=== PATIENT | female | born 1960 | race Caucasian/White ===

== ENCOUNTER 2019-04-02 15:10 | Observation (INO) | payer SELFPAY ==
[~2019-04-02 15:10] MED LIST: GLYCOPYRROLATE 1 MG/5 ML VIAL ONE; KETOROLAC TROMETHAMINE 60 MG/2 ML SDV ONE; LIDOCAINE 2% INJ-PF (20 MG/ML) 2 ML AMPUL ONE; NEOSTIGMINE METHYLSULFATE 10 MG/10 ML VIAL ONE; ONDANSETRON HCL INJ/PF 4 MG/2 ML SDV ONE; ROCURONIUM BROMIDE INJ 50 MG/5 ML VIAL IV ONE; SUCCINYLCHOLINE CHLORIDE INJ 200 MG/10 ML VIAL ONE
--- NOTE | 2019-04-02 15:46 | ER Document Report ---
ED Medical Screen (RME) - General Chief Complaint: Abdominal Pain Stated Complaint: RIGHT SIDE ABDOMINAL PAIN Time Seen by Provider: 04/02/19 15:43 Primary Care Provider: ROSANA FREEMAN MD [Primary Care Provider] - Follow up as needed Notes: 58-year-old female presented to ED for complaint of right-sided abdominal pain. Patient states pain started this morning. She states she she is having nausea but no vomiting or diarrhea. She denies any fevers. Patient states she still has her appendix and the pain is very tender at McBurney's point. She also has some right pelvic tenderness. Will do blood and urine to start with and have her examined while laying down. I have greeted and performed a rapid initial assessment of this patient. A comprehensive ED assessment and evaluation of the patient, analysis of test results and completion of medical decision making process will be conducted by an additional ED providers. Physical Exam - Vital signs Vitals: Temp Pulse Resp BP Pulse Ox 97.6 F 80 20 159/86 H 98 04/02/19 15:27 04/02/19 15:27 04/02/19 15:27 04/02/19 15:27 04/02/19 15:27 Course - Vital Signs Vital signs: Temp Pulse Resp BP Pulse Ox 97.6 F 80 20 159/86 H 98 04/02/19 15:27 04/02/19 15:27 04/02/19 15:27 04/02/19 15:27 04/02/19 15:27 Doctor's Discharge - Discharge Referrals: ROSANA FREEMAN MD [Primary Care Provider] - Follow up as needed
[2019-04-02] MEDS ORDERED: OXYCODONE-ACETAMINOPHEN 5-325 MG TABLET PO ONE (15:48)
[2019-04-02] MEDS ORDERED: ONDANSETRON 4 MG TAB.RAPDIS PO ONE (15:48)
[2019-04-02 17:25] LABS: APPEARANCE,URINE SLIGHTLY-CLOUDY; BILIRUBIN,URINE NEGATIVE (NEGATIVE); COLOR,URINE YELLOW; GLUCOSE, URINE NEGATIVE (NEGATIVE); KETONES,URINE NEGATIVE (NEGATIVE); PROTEIN,URINE NEGATIVE (NEGATIVE); URINE SPECIFIC GRAVITY 1.019; UROBILINOGEN,URINE NEGATIVE mg/dL (<2.0)
[2019-04-02 17:35] LABS: ALBUMIN 4.7 g/dL (3.5-5.0); ALKALINE PHOSPHATASE 75 U/L (38-126); ANION GAP 12 (5-19); ASPARTATE AMINO TRANSFERASE 23 U/L (14-36); BILIRUBIN,DIRECT 0.1 mg/dL (0.0-0.4); BILIRUBIN,TOTAL 0.8 mg/dL (0.2-1.3); BLOOD UREA NITROGEN 10 mg/dL (7-20); CALCIUM 9.9 mg/dL (8.4-10.2); CARBON DIOXIDE 26 mmol/L (22-30); CHLORIDE 100 mmol/L (98-107); GLUCOSE 111 mg/dL (75-110); POTASSIUM 4.6 mmol/L (3.6-5.0); TOTAL PROTEIN 7.7 g/dL (6.3-8.2)
[2019-04-02 17:40] LABS: HEMATOCRIT 45.7 % (36.0-47.0); HEMOGLOBIN 15.5 g/dL (12.0-15.5); MEAN CORPUSCULAR HEMOGLOBIN 31.8 pg (27.0-33.4); MEAN CORPUSCULAR VOLUME 94 fl (80-97); PLATELET COUNT 219 10^3/uL (150-450); RED BLOOD COUNT 4.88 10^6/uL (3.72-5.28); RED CELL DISTRIBUTION WIDTH 12.5 % (11.5-14.0); WHITE BLOOD COUNT 17.7 10^3/uL (4.0-10.5)
--- NOTE | 2019-04-02 18:43 | RADIOLOGY REPORT (SQ) ---
EXAM DESCRIPTION: CT ABD/PELVIS WITH IV ONLY COMPLETED DATE/TIME: 04/02/2019 6:24 pm REASON FOR STUDY: Severe right lower quadrant abdominal pain COMPARISON: None. TECHNIQUE: CT scan of the abdomen and pelvis performed using helical scanning technique with dynamic intravenous contrast injection. No oral contrast. Images reviewed with lung, soft tissue, and bone windows. Reconstructed coronal and sagittal MPR images reviewed. Delayed images for evaluation of the urinary system also acquired. All images stored on PACS. All CT scanners at this facility use dose modulation, iterative reconstruction, and/or weight based d osing when appropriate to reduce radiation dose to as low as reasonably achievable (ALARA). [facility]: Dose Right [facility]: CareDose [facility]: Dose Right [facility]: Teradose 4D [facility]: Anergis CONTRAST TYPE AND DOSE: contrast/concentration: Isovue 350.00 mg/ml; Total Contrast Delivered: 83.0 ml; Total Saline Delivered: 69.0 ml RENAL FUNCTION: BUN 10; creatinine 0.59 RADIATION DOSE: CT Rad equipment meets quality standard of care and radiation dose reduction techniq ues were employed. CTDIvol: 7.6 - 10.4 mGy. DLP: 964 mGy-cm.. LIMITATIONS: None. FINDINGS: LOWER CHEST: No significant findings. No nodules or infiltrates. LIVER: Normal size. No masses. No dilated ducts. SPLEEN: Normal size. No focal lesions. PANCREAS: No masses. No significant calcifications. No adjacent inflammation or peripancreatic fluid collections. Pancreatic duct not dilated. GALLBLADDER: No identified stones by CT criteria. No inflammatory changes to suggest cholecystitis. ADRENAL GLANDS: No significant masses or asymmetry. RIGHT KIDNEY AND URETER: No solid masses. No significant calcifications. No hydronephrosis or hyd roureter. LEFT KIDNEY AND URETER: No solid masses. No significant calcifications. No hydronephrosis or hydr oureter. AORTA AND VESSELS: No aneurysm. No dissection. Renal arteries, SMA, celiac without stenosis. RETROPERITONEUM: No retroperitoneal adenopathy, hemorrhage or masses. BOWEL AND PERITONEAL CAVITY: No masses or inflammatory changes. No free fluid or peritoneal masses. APPENDIX: The appendix appears dilated up to 1.7 cm with mural thickening and and appendicolith. PELVIS: No mass. No free fluid. The bladder appears normal. The uterine vasculature appears promin ent, suggesting pelvic vascular congestion. ABDOMINAL WALL: No masses. No hernias. BONES: No significant or acute findings. OTHER: No other significant finding. IMPRESSION: Findings consistent with uncomplicated acute appendicitis. Chronic and incidental findi ngs as detailed above. TECHNICAL DOCUMENTATION: JOB ID: [id number] Quality ID # [id number]: Final reports with documentation of one or more dose reduction techniques (e.g., Au tomated exposure control, adjustment of the mA and/or kV according to patient size, use of iterative reconstruction technique) 2010 [employer]- All Rights Reserved Reading location - IP/workstation name: [email or web address]
[2019-04-02 19:05] LABS: ABSOLUTE LYMPHOCYTES# (MANUAL) 0.7 10^3/uL (0.5-4.7); ABSOLUTE MONOCYTES # (MANUAL) 0.7 10^3/uL (0.1-1.4); BAND NEUTROPHILS % (MANUAL) 3 % (3-5); BASOPHILS % (MANUAL) 0 % (0-2); EOSINOPHILS % (MANUAL) 0 % (0-6); LYMPHOCYTES % (MANUAL) 4 % (13-45); MONOCYTES % (MANUAL) 4 % (3-13); SEGMENTED NEUTROPHILS % (MAN) 89 % (42-78); TOTAL CELLS COUNTED 100
[2019-04-02 19:06] LABS: PLATELET COMMENT ADEQUATE
--- NOTE | 2019-04-02 19:07 | ER Document Report ---
ED General - General Chief Complaint: Abdominal Pain Stated Complaint: RIGHT SIDE ABDOMINAL PAIN Time Seen by Provider: 04/02/19 15:43 Primary Care Provider: ROSANA FREEMAN MD [EMERITUS] - Follow up as needed - HPI Patient complains to provider of: Right lower quadrant abdominal pain Onset: This morning Quality of pain: Sharp Severity: Severe Pain Level: 5 Associated symptoms: Nausea Exacerbated by: Movement Relieved by: Denies Similar symptoms previously: No Recently seen / treated by doctor: No Notes: This is a 58-year-old female presenting with abdominal pain that started this morning. Patient reports her pain as a 5 on a 1-5 scale. Patient states she is also having nausea. Initial vital signs temp is 97.6 oral, heart rate 80, respiratory rate 20, pulse ox 98% on room air, blood pressure is 159/86. - Related Data Allergies/Adverse Reactions: No Known Allergies Allergy (Verified 04/02/19 15:46) Past Medical History - Social History Smoking Status: Never Smoker Frequency of alcohol use: None Drug Abuse: None Family History: Reviewed & Not Pertinent Patient has suicidal ideation: No Patient has homicidal ideation: No - Medical History Medical History: Negative Review of Systems - Review of Systems Constitutional: No symptoms reported EENT: No symptoms reported Cardiovascular: No symptoms reported Respiratory: No symptoms reported Gastrointestinal: See HPI, Abdominal pain, Nausea Genitourinary: No symptoms reported Female Genitourinary: No symptoms reported Musculoskeletal: No symptoms reported Skin: No symptoms reported Hematologic/Lymphatic: No symptoms reported Neurological/Psychological: No symptoms reported -: Yes All other systems reviewed and negative Physical Exam - Vital signs Vitals: Temp Pulse Resp BP Pulse Ox 97.6 F 80 20 159/86 H 98 04/02/19 15:27 04/02/19 15:27 04/02/19 15:27 04/02/19 15:27 04/02/19 15:27 - Notes Notes: PHYSICAL EXAMINATION: GENERAL: Well-appearing, well-nourished and in no acute distress. HEAD: Atraumatic, normocephalic. EYES: Pupils equal round and reactive to light, extraocular movements intact, sclera anicteric, conjunctiva are normal. ENT: nares patent, oropharynx clear without exudates. Moist mucous membranes. NECK: Normal range of motion, supple without lymphadenopathy LUNGS: Breath sounds clear to auscultation bilaterally and equal. No wheezes rales or rhonchi. HEART: Regular rate and rhythm without murmurs ABDOMEN: Abdomen is nondistended, very tender to palpation in the right lower quadrant. Positive Mcrae sign. Negative Rovsing sign. No guarding. Bowel sounds are hypoactive. EXTREMITIES: Normal range of motion, no pitting or edema. No cyanosis. NEUROLOGICAL: No focal neurological deficits. Moves all extremities spontaneously and on command. PSYCH: Normal mood, normal affect. SKIN: Warm, Dry, normal turgor, no rashes or lesions noted. Course - Re-evaluation Re-evalutation: 04/02/19 19:38 Patient states that her pain and nausea are currently well controlled. Patient was informed that her evaluation is significant for acute appendicitis. Patient states that the last time she ate was yesterday. Patient was informed that this MD would consult Dr. Sheth, in-house surgical list and that the patient will require appendectomy. Patient states understanding of diagnosis and treatment plan as explained to her. Patient states she had no further questions at this time. Differential diagnosis: Acute appendicitis, diverticulitis, renal stone, pyelonephritis, colitis Assessment and plan: 58-year-old female presents with right lower quadrant pain and nausea x1 day. Patient's evaluation ED significant for leukocytosis and acute appendicitis. Plan: Case discussed with Dr. Sheth's OR nurse. Dr. Chapo leblanc is currently in the OR performing an appendectomy. He stated he would see the pt in the ED. He requested IV Zosyn be given to the pt while she is in the ED. - Vital Signs Vital signs: Temp Pulse Resp BP Pulse Ox 99.8 F 87 19 143/62 H 100 04/02/19 18:00 04/02/19 18:00 04/02/19 18:00 04/02/19 18:00 04/02/19 18:00 04/02/19 19:43 Vital signs reviewed by this MD. - Laboratory Result Diagrams: 04/02/19 16:55 04/02/19 16:55 Laboratory results interpreted by me: 04/02/19 04/02/19 04/02/19 16:55 16:55 16:55 WBC 17.7 H Seg Neuts % (Manual) 89 H Lymphocytes % (Manual) 4 L Abs Neuts (Manual) 16.3 H Glucose 111 H Urine Blood SMALL H 04/02/19 19:43 All laboratory results reviewed by this MD. - Diagnostic Test Radiology reviewed: Reports reviewed Discharge - Discharge Clinical Impression: Acute appendicitis Qualifiers: Acute appendicitis type: unspecified acute appendicitis type Qualified Code(s): K35.80 - Unspecified acute appendicitis Disposition: ADMITTED OBSERVATION Admitting Provider: Surgicalist - DR. SHETH Unit Admitted: Surgical Floor Referrals: ROSANA FREEMAN MD [EMERITUS] - Follow up as needed
[2019-04-02] MEDS ORDERED: PIPERACILLIN/TAZOBACTAM 3.375 GM VIAL IV ONE (19:20)
[2019-04-02] MEDS ORDERED: NORMAL SALINE 1000 ML 1,000 ML IV PRN (21:55)
[2019-04-02] MEDS ORDERED: BUPIVACAINE HCL 0.25 % INJ/PF (2.5 MG/1 ML) 30 ML VIAL ONE (23:00)
[2019-04-02] MEDS ORDERED: FENTANYL CITRATE INJ/PF 250 MCG/5 ML AMPULE ONE (23:07)
[2019-04-02] MEDS ORDERED: HYDROMORPHONE HCL INJ/PF 2 MG/ML AMPULE ONE (23:07)
[2019-04-02] MEDS ORDERED: MIDAZOLAM 2 MG/2 ML INJ ONE (23:07)
[2019-04-02] MEDS ORDERED: PROPOFOL INJ 200 MG/20 ML VIAL IV ONE (23:07)
--- NOTE | 2019-04-02 23:30 | PDOC H&P ---
History of Present Illness Admission Date/PCP: 04/02/19 20:35 Patient complains of: abdominal pains History of Present Illness: JERED ROMERO is a 58 year old female who suddenly c/o RLQ pains with nausea this am. Went to ED where CT scan of abdomen showed acute appendicitis.Admits to having chills and felt warm. Past Medical History Medical History: None Past Surgical History Past Surgical History: Reports: None Social History Smoking Status: Current Some Day Smoker Cigarettes Packs Per Day: 0.2 Frequency of Alcohol Use: Rare - Advance Directive Resuscitation Status: Full Code Family History Family History: Reviewed & Not Pertinent Parental Family History Reviewed: Yes Children Family History Reviewed: No Sibling(s) Family History Reviewed.: No Medication/Allergy Home Medications: Dextroamphetamine/Amphetamine [Adderall 10 mg Tablet] 10 mg PO QID 04/02/19 Propranolol HCl [Inderal 40 mg Tablet] 40 mg PO Q8 04/02/19 Allergies/Adverse Reactions: No Known Allergies Allergy (Verified 04/02/19 15:46) Review of Systems Constitutional: PRESENT: as per HPI Gastrointestinal: PRESENT: abdominal pain, nausea Physical Exam Vital Signs: Temp Pulse Resp BP Pulse Ox 99.9 F 98 16 130/75 H 99 04/02/19 22:46 04/02/19 22:46 04/02/19 22:46 04/02/19 22:46 04/02/19 22:46 Intake & Output 04/01/19 04/02/19 04/03/19 06:59 06:59 06:59 Weight 73.8 kg General appearance: PRESENT: mild distress Head exam: PRESENT: atraumatic Eye exam: PRESENT: conjunctiva pink Mouth exam: PRESENT: moist Neck exam: PRESENT: full ROM Respiratory exam: PRESENT: clear to auscultation sheri Cardiovascular exam: PRESENT: RRR Pulses: PRESENT: normal radial pulses Vascular exam: PRESENT: normal capillary refill GI/Abdominal exam: PRESENT: rebound, soft, tenderness - RLQ Rectal exam: PRESENT: deferred Extremities exam: PRESENT: full ROM Musculoskeletal exam: PRESENT: full ROM Neurological exam: PRESENT: alert, oriented to person, oriented to place, oriented to time, oriented to situation Psychiatric exam: PRESENT: appropriate affect Skin exam: PRESENT: normal color, warm Results Laboratory Results: 04/02/19 16:55 04/02/19 16:55 04/02/19 04/02/19 04/02/19 16:55 16:55 16:55 WBC 17.7 H RBC 4.88 Hgb 15.5 Hct 45.7 MCV 94 MCH 31.8 MCHC 34.0 RDW 12.5 Plt Count 219 Seg Neutrophils % Not Reportable Sodium 137.8 Potassium 4.6 Chloride 100 Carbon Dioxide 26 Anion Gap 12 BUN 10 Creatinine 0.59 Est GFR ( Amer) > 60 Glucose 111 H Calcium 9.9 Total Bilirubin 0.8 AST 23 Alkaline Phosphatase 75 Total Protein 7.7 Albumin 4.7 Lipase 32.8 Urine Color YELLOW Urine Appearance SLIGHTLY-CLOUDY Urine pH 5.0 Ur Specific [place] 1.019 Urine Protein NEGATIVE Urine Glucose (UA) NEGATIVE Urine Ketones NEGATIVE Urine Blood SMALL H Urine RBC (Auto) 1 Impressions: Abdomen/Pelvis CT 04/02/19 15:46 IMPRESSION: Findings consistent with uncomplicated acute appendicitis. Chronic and incidental findings as detailed above. Assessment & Plan - Diagnosis (1) Acute appendicitis Qualifiers: Acute appendicitis type: unspecified acute appendicitis type Qualified Code(s): K35.80 - Unspecified acute appendicitis Is this a current diagnosis for this admission?: Yes - Time Time Spent: 30 to 50 Minutes - Inpatient Certification Medical Necessity: Need For IV Fluids, Need for IV Antibiotics, Need for Surgery - Plan Summary Plan Summary: Started on IV antibiotics To OR for Laparoscopic appendectomy
[2019-04-03] MEDS ORDERED: FENTANYL CITRATE INJ/PF 100 MCG/2 ML AMPUL IV PRN ×3 (00:07)
[2019-04-03] MEDS ORDERED: PROMETHAZINE HCL INJ 25 MG/1 ML VIAL IV PRN ×2 (00:07)
[2019-04-03] MEDS ORDERED: DIPHENHYDRAMINE HCL 50 MG/ML VIAL IV PRN (00:07)
[2019-04-03] MEDS ORDERED: MEPERIDINE HCL/PF INJ 25 MG/1 ML DISP.SYRIN IV PRN (00:07)
[2019-04-03] MEDS ORDERED: HYDROMORPHONE HCL INJ/PF 2 MG/ML AMPULE IV PRN (00:08)
[2019-04-03] MEDS ORDERED: PIPERACILLIN/TAZOBACTAM 3.375 GM VIAL IV PRN (00:36)
--- NOTE | 2019-04-03 01:03 | Operative Report ---
Operative Report DATE OF SURGERY: 04/03/19 PREOPERATIVE DIAGNOSIS: Acute appendicitis POSTOPERATIVE DIAGNOSIS: Same OPERATION: Laparoscopic appendectomy SURGEON: ROBERT SHETH ANESTHESIA: GA TISSUE REMOVED OR ALTERED: Appendix COMPLICATIONS: None ESTIMATED BLOOD LOSS: 5 cc QUANTITATIVE BLOOD LOSS: 5 INTRAOPERATIVE FINDINGS: Acute appendicitis almost pregangrenous stage PROCEDURE: After adequate general anesthesia the patient was placed in supine position and the abdomen prepped and draped in the usual sterile fashion. Appropriate timeout was then called. Infraumbilical incision is made in the fascia grasped with Millsap clamps divided between the Kim clamps. Suture of 0 Vicryl were placed on each side of the clamp and the clamps were released. The peritoneal cavity was probed with a digital finger and no evidence of adhesions intra-abdominally. A [place] trocar was inserted to the fascia into the abdominal cavity and CO2 insufflated to a pressure of 15 mmHg. Camera was inserted and 2 other trochars were placed a 5 mm in the suprapubic and a 12 mm in the left lower quadrant under direct vision. Appendix was then identified and noted to be markedly tense and somewhat dusky. The mesoappendix at the base was subsequently divided with the use of harmonic mahesh. Base of appendix was not involved with inflammation and this was then stapled with an Endo BULMARO blue load. Appendix placed in an Endobag and pulled out through the umbilical port. Sk[place]gs trocar was put back and stump inspected no evidence of bleeding noted. Little irrigation was done and no evidence of further bleeding noted. All the trochars were then removed and CO2 allowed to come out of the trocar sites. The infraumbilical fascial defect was then closed with a [id number] suture using 0 Vicryl. The 2 stay sutures were then tied over the fascial defect for better closure. All the skin incisions were then closed with running subcuticular 4-0 Vicryl undyed. All the skin incisions and infraumbilical fascia area was injected with Marcaine with epinephrine. Patient tolerated procedure well. Steri-Strips placed over the operative sites. Needle instrument sponge counts were all correct and estimated blood loss about 5 cc. Patient brought the recovery room extubated in satisfactory condition.
[2019-04-03] MEDS ORDERED: PIPERACILLIN/TAZOBACTAM 3.375 GM VIAL IV ONE (02:13)
[2019-04-03] MEDS: PIPERACILLIN SODIUM/TAZOBACTAM 3.375 GM in NORMAL SALINE 100 ML IV SCH ×4 (03:21→21:18)
[2019-04-03 04:30] LABS: ABSOLUTE LYMPHOCYTES (AUTO) 0.7 10^3/uL (0.5-4.7); ABSOLUTE MONOCYTES (AUTO) 0.2 10^3/uL (0.1-1.4); BASOPHILS % (AUTO) 0.2 % (0-2); EOSINOPHILS % (AUTO) 0.1 % (0-6); HEMATOCRIT 41.4 % (36.0-47.0); LYMPHOCYTES % (AUTO) 8.5 % (13-45); MEAN CORPUSCULAR HEMOGLOBIN 32.5 pg (27.0-33.4); MEAN CORPUSCULAR HGB CONC 33.9 g/dL (32.0-36.0); MEAN CORPUSCULAR VOLUME 96 fl (80-97); MONOCYTES % (AUTO) 3.1 % (3-13); PLATELET COUNT 168 10^3/uL (150-450); RED BLOOD COUNT 4.32 10^6/uL (3.72-5.28); RED CELL DISTRIBUTION WIDTH 12.6 % (11.5-14.0); SEGMENTED NEUTROPHILS % (AUTO) 88.1 % (42-78); TOTAL CELLS COUNTED % (AUTO) 100 %
[2019-04-03] MEDS: KETOROLAC TROMETHAMINE INJ/PF 30 MG/1 ML SDV IV SCH ×4 (06:39→23:14)
[2019-04-03] MEDS: RINGERS SOLUTION,LACTATED 1,000 ML IV PRN ×2 (08:23→21:18)
[2019-04-03] MEDS: ONDANSETRON HCL INJ/PF 4 MG/2 ML SDV IV PRN (14:21)
--- NOTE | 2019-04-03 18:14 | PDOC PROGRESS REPORT ---
Subjective Progress Note for:: 04/03/19 Subjective:: Much less pains after laparoscopic appendectomy tolerating clear liquids well Reason For Visit: ACUTE APPENDICITIS Physical Exam Vital Signs: Temp Pulse Resp BP Pulse Ox 99.1 F 94 20 140/78 H 95 04/03/19 16:00 04/03/19 16:00 04/03/19 16:00 04/03/19 16:00 04/03/19 16:00 Intake & Output 04/02/19 04/03/19 04/04/19 06:59 06:59 06:59 Intake Total 1460 1100 Output Total 5 Balance 1455 1100 Weight 72.5 kg Exam: Abdomen is soft with mild tenderness. Results Laboratory Results: 04/03/19 03:23 04/02/19 16:55 04/03/19 03:23 WBC 8.0 RBC 4.32 Hgb 14.0 Hct 41.4 MCV 96 MCH 32.5 MCHC 33.9 RDW 12.6 Plt Count 168 Seg Neutrophils % 88.1 H Impressions: Abdomen/Pelvis CT 04/02/19 15:46 IMPRESSION: Findings consistent with uncomplicated acute appendicitis. Chronic and incidental findings as detailed above. Assessment & Plan - Diagnosis (1) Acute appendicitis Qualifiers: Acute appendicitis type: unspecified acute appendicitis type Qualified Code(s): K35.80 - Unspecified acute appendicitis Is this a current diagnosis for this admission?: Yes - Time Time Spent with patient: 15-24 minutes - Inpatient Certification Medical Necessity: Need for IV Antibiotics - Plan Summary Plan Summary: Her white count is normal done this afternoon. Plan and to continue IV antibiotics until tomorrow prior to eventual 12 disch arge
[2019-04-03] MEDS ORDERED: OXYCODONE-ACETAMINOPHEN 5-325 MG TABLET ONE (18:21)
[2019-04-03] MEDS ORDERED: OXYCODONE-ACETAMINOPHEN 5-325 MG TABLET PO PRN (18:27)
[2019-04-03 23:24] LABS: APPEARANCE,URINE TURBID; BILIRUBIN,URINE NEGATIVE (NEGATIVE); COLOR,URINE YELLOW; GLUCOSE, URINE 50 mg/dL (NEGATIVE); KETONES,URINE NEGATIVE (NEGATIVE); LEUKOCYTE ESTERASE,URINE NEGATIVE (NEGATIVE); NITRITE,URINE NEGATIVE (NEGATIVE); PROTEIN,URINE 100 mg/dL (NEGATIVE); URINE SPECIFIC GRAVITY 1.041; UROBILINOGEN,URINE NEGATIVE mg/dL (<2.0)
[2019-04-04] MEDS: PIPERACILLIN SODIUM/TAZOBACTAM 3.375 GM in NORMAL SALINE 100 ML IV SCH ×2 (03:40→08:23)
[2019-04-04 04:07] LABS: ABSOLUTE EOSINOPHILS # (AUTO) 0.1 10^3/uL (0.0-0.6); ABSOLUTE LYMPHOCYTES (AUTO) 0.7 10^3/uL (0.5-4.7); ABSOLUTE MONOCYTES (AUTO) 0.3 10^3/uL (0.1-1.4); ABSOLUTE NEUT (AUTO) 7.3 10^3/uL (1.7-8.2); BASOPHILS % (AUTO) 0.3 % (0-2); EOSINOPHILS % (AUTO) 0.7 % (0-6); HEMATOCRIT 38.6 % (36.0-47.0); HEMOGLOBIN 13.3 g/dL (12.0-15.5); LYMPHOCYTES % (AUTO) 8.4 % (13-45); MEAN CORPUSCULAR HEMOGLOBIN 32.6 pg (27.0-33.4); MEAN CORPUSCULAR HGB CONC 34.4 g/dL (32.0-36.0); MEAN CORPUSCULAR VOLUME 95 fl (80-97); MONOCYTES % (AUTO) 3.6 % (3-13); PLATELET COUNT 134 10^3/uL (150-450); RED BLOOD COUNT 4.08 10^6/uL (3.72-5.28); RED CELL DISTRIBUTION WIDTH 12.6 % (11.5-14.0); TOTAL CELLS COUNTED % (AUTO) 100 %; WHITE BLOOD COUNT 8.4 10^3/uL (4.0-10.5)
[2019-04-04] MEDS: KETOROLAC TROMETHAMINE INJ/PF 30 MG/1 ML SDV IV SCH ×2 (06:03→12:00)
[2019-04-04] MEDS: ONDANSETRON HCL INJ/PF 4 MG/2 ML SDV IV PRN (07:36)
--- NOTE | 2019-04-04 07:57 | PDOC DISCHARGE SUMMARY ---
General - Admit/Disc Date/PCP Admission Date/Primary Care Provider: 04/02/19 20:35 Discharge Date: 04/04/19 - Discharge Diagnosis Final Diagnosis: Acute appendicitis - Assessment Summary: Patient admitted on 04/02/2019 for acute appendicitis and underwent laparoscopic appendectomy on 04/03/2019. Postoperatively patient did very well and discharged improved on 04/04/2019. Operation 04/03/2019 for laparoscopic appendectomy done by Dr. Valentin - Additional Information Resuscitation Status: Full Code Discharge Diet: Regular Discharge Activity: No Lifting Over 10 Pounds, No Lifting/Push/Pulling Referrals: MADDISON GARCIA MD [ACTIVE STAFF] - ROSANA FREEMAN MD [EMERITUS] - Follow up as needed Home Medications: Dextroamphetamine/Amphetamine [Adderall 10 mg Tablet] 10 mg PO QID 04/02/19 Propranolol HCl [Inderal 40 mg Tablet] 40 mg PO Q8 04/02/19 Physical Exam Vital Signs: Temp Pulse Resp BP Pulse Ox 98.4 F 89 18 122/68 95 04/03/19 23:30 04/03/19 23:30 04/03/19 23:30 04/03/19 23:30 04/03/19 23:30 Intake & Output 04/03/19 04/04/19 04/05/19 06:59 06:59 06:59 Intake Total 1460 3992 Output Total 5 745 Balance 1455 3247 Weight 72.5 kg Results Laboratory Results: WBC 8.4 10^3/uL (4.0-10.5) 04/04/19 03:26 RBC 4.08 10^6/uL (3.72-5.28) 04/04/19 03:26 Hgb 13.3 g/dL (12.0-15.5) 04/04/19 03:26 Hct 38.6 % (36.0-47.0) 04/04/19 03:26 MCV 95 fl (80-97) 04/04/19 03:26 MCH 32.6 pg (27.0-33.4) 04/04/19 03:26 MCHC 34.4 g/dL (32.0-36.0) 04/04/19 03:26 RDW 12.6 % (11.5-14.0) 04/04/19 03:26 Plt Count 134 10^3/uL (150-450) L 04/04/19 03:26 Lymph % (Auto) 8.4 % (13-45) L 04/04/19 03:26 [place] % (Auto) 3.6 % (3-13) 04/04/19 03:26 Eos % (Auto) 0.7 % (0-6) 04/04/19 03:26 Baso % (Auto) 0.3 % (0-2) 04/04/19 03:26 Absolute Neuts (auto) 7.3 10^3/uL (1.7-8.2) 04/04/19 03:26 Absolute Lymphs (auto) 0.7 10^3/uL (0.5-4.7) 04/04/19 03:26 Absolute Monos (auto) 0.3 10^3/uL (0.1-1.4) 04/04/19 03:26 Absolute Eos (auto) 0.1 10^3/uL (0.0-0.6) 04/04/19 03:26 Absolute Basos (auto) 0.0 10^3/uL (0.0-0.2) 04/04/19 03:26 Total Counted 100 04/02/19 16:55 Seg Neutrophils % 87.0 % (42-78) H 04/04/19 03:26 Seg Neuts % (Manual) 89 % (42-78) H 04/02/19 16:55 Band Neutrophils % 3 % (3-5) 04/02/19 16:55 Lymphocytes % (Manual) 4 % (13-45) L 04/02/19 16:55 Monocytes % (Manual) 4 % (3-13) 04/02/19 16:55 Eosinophils % (Manual) 0 % (0-6) 04/02/19 16:55 Basophils % (Manual) 0 % (0-2) 04/02/19 16:55 Abs Neuts (Manual) 16.3 10^3/uL (1.7-8.2) H 04/02/19 16:55 Abs Lymphs (Manual) 0.7 10^3/uL (0.5-4.7) 04/02/19 16:55 Abs Monocytes (Manual) 0.7 10^3/uL (0.1-1.4) 04/02/19 16:55 Absolute Eos (Manual) 0.0 10^3/uL (0.0-0.6) 04/02/19 16:55 Abs Basophils (Manual) 0.0 10^3/uL (0.0-0.2) 04/02/19 16:55 Platelet Comment ADEQUATE 04/02/19 16:55 Sodium 137.8 mmol/L (137-145) 04/02/19 16:55 Potassium 4.6 mmol/L (3.6-5.0) 04/02/19 16:55 Chloride 100 mmol/L (98-107) 04/02/19 16:55 Carbon Dioxide 26 mmol/L (22-30) 04/02/19 16:55 Anion Gap 12 (5-19) 04/02/19 16:55 BUN 10 mg/dL (7-20) 04/02/19 16:55 Creatinine 0.59 mg/dL (0.52-1.25) 04/02/19 16:55 Est GFR ( Amer) > 60 (>60) 04/02/19 16:55 Est GFR (MDRD) Non-Af > 60 (>60) 04/02/19 16:55 Glucose 111 mg/dL (75-110) H 04/02/19 16:55 Calcium 9.9 mg/dL (8.4-10.2) 04/02/19 16:55 Total Bilirubin 0.8 mg/dL (0.2-1.3) 04/02/19 16:55 Direct Bilirubin 0.1 mg/dL (0.0-0.4) 04/02/19 16:55 Neonat Total Bilirubin Not Reportable 04/02/19 16:55 Neonat Direct Bilirubin Not Reportable 04/02/19 16:55 Neonat Indirect Bili Not Reportable 04/02/19 16:55 AST 23 U/L (14-36) 04/02/19 16:55 ALT 16 U/L (<35) 04/02/19 16:55 Alkaline Phosphatase 75 U/L (38-126) 04/02/19 16:55 Total Protein 7.7 g/dL (6.3-8.2) 04/02/19 16:55 Albumin 4.7 g/dL (3.5-5.0) 04/02/19 16:55 Lipase 32.8 U/L (23-300) 04/02/19 16:55 Urine Color YELLOW 04/03/19 21:18 Urine Appearance TURBID 04/03/19 21:18 Urine pH 5.0 (5.0-9.0) 04/03/19 21:18 Ur Specific [place] 1.041 04/03/19 21:18 Urine Protein 100 mg/dL (NEGATIVE) H 04/03/19 21:18 Urine Glucose (UA) 50 mg/dL (NEGATIVE) H 04/03/19 21:18 Urine Ketones NEGATIVE mg/dL (NEGATIVE) 04/03/19 21:18 Urine Blood MODERATE (NEGATIVE) H 04/03/19 21:18 Urine Nitrite NEGATIVE (NEGATIVE) 04/03/19 21:18 Urine Nitrite (Reflex) NEGATIVE (NEGATIVE) 04/02/19 16:55 Urine Bilirubin NEGATIVE (NEGATIVE) 04/03/19 21:18 Urine Urobilinogen NEGATIVE mg/dL (<2.0) 04/03/19 21:18 Ur Leukocyte Esterase NEGATIVE (NEGATIVE) 04/03/19 21:18 Leukocyte Esterase Rfl NEGATIVE (NEGATIVE) 04/02/19 16:55 Urine WBC (Auto) 77 /HPF 04/03/19 21:18 Urine RBC (Auto) 28 /HPF 04/03/19 21:18 U Hyaline Cast (Auto) 1 /LPF 04/02/19 16:55 Urine Bacteria (Auto) TRACE /HPF 04/03/19 21:18 Urine WBC (Reflex) < 1 /HPF 04/02/19 16:55 Squamous Epi Cells Auto 4 /HPF 04/02/19 16:55 Urine Mucus (Auto) OCC /LPF 04/02/19 16:55 Urine Yeast (Budding) PRESENT /HPF 04/03/19 21:18 Urine Ascorbic Acid NEGATIVE (NEGATIVE) 04/03/19 21:18 Impressions: Abdomen/Pelvis CT 04/02/19 15:46 IMPRESSION: Findings consistent with uncomplicated acute appendicitis. Chronic and incidental findings as detailed above.
[2019-04-04 10:24] VITALS: BP 144/88
== END 2019-04-04 12:00 | disposition home or self-care (01) ==
LOC: ER 15:10 → EH 20:35 → 4S 04-03 02:09
PROVIDERS: ATTEND Surgery
PROC: 0DTJ4ZZ Resection of Appendix, Percutaneous Endoscopic Approach (ICD-10-PCS; principal; 2019-04-03)
DX: K35.30 Acute appendicitis with localized peritonitis, without perforation or gangrene (principal); F17.210 Nicotine dependence, cigarettes, uncomplicated
CPT/HCPCS: 99284; 96365; 96366; 36415 ×3; 87086; 83690; 85025 ×3; 80053; 81001 ×2; 88304 ×2; 74177; 00840; 44970; G0378 ×2; J3490 ×3; J1885 ×2; S0119; J3010; J2710; J1170 ×2; J0330; J2405 ×3; J7050 ×2; J7030; J7120; J2704; J2543 ×3; 840; J2250

== ENCOUNTER 2019-04-30 11:33 | Emergency (ER) | payer SELFPAY ==
--- NOTE | 2019-04-30 12:35 | ER Document Report ---
ED Medical Screen (RME) - General Chief Complaint: Post Surgical Pain Stated Complaint: POST OP PAIN/INCISION SITE PAIN Time Seen by Provider: 04/30/19 12:28 Notes: 58-year-old female presents the emergency department for concern for a postop c omplication. Patient had an appendectomy 04/02/[address] Todd. For the past 2 weeks she has had intermittent low-grade fevers measured at 100 and she is now concerned because she has redness, warmth, and a "knot" over the suprapubic area. Exam: Well-appearing and nontoxic. Erythema over the suprapubic area, warmth to touch, there is an area of induration, patient is tachycardic with a rate of 114. I have greeted and performed a rapid initial assessment of this patient. A comprehensive ED assessment and evaluation of the patient, analysis of test results and completion of medical decision making process will be conducted by an additional ED providers. TRAVEL OUTSIDE OF THE [place] IN LAST 30 DAYS: No - Related Data Allergies/Adverse Reactions: No Known Allergies Allergy (Verified 04/02/19 15:46) Home Medications: Propranolol Past Medical History - Past Medical History Cardiac Medical History: Reports: Hx Hypertension - Immunizations Hx Diphtheria, Pertussis, Tetanus Vaccination: Yes Physical Exam - Vital signs Vitals: Temp Pulse Resp BP Pulse Ox 99 F 113 H 16 150/87 H 99 04/30/19 11:43 04/30/19 11:43 04/30/19 11:43 04/30/19 11:43 04/30/19 11:43 Course - Vital Signs Vital signs: Temp Pulse Resp BP Pulse Ox 99 F 113 H 16 150/87 H 99 04/30/19 11:43 04/30/19 11:43 04/30/19 11:43 04/30/19 11:43 04/30/19 11:43
[2019-04-30 13:07] LABS: ABSOLUTE BASOPHILS # (AUTO) 0.1 10^3/uL (0.0-0.2); ABSOLUTE EOSINOPHILS # (AUTO) 0.1 10^3/uL (0.0-0.6); ABSOLUTE LYMPHOCYTES (AUTO) 1.4 10^3/uL (0.5-4.7); ABSOLUTE MONOCYTES (AUTO) 0.8 10^3/uL (0.1-1.4); ABSOLUTE NEUT (AUTO) 12.9 10^3/uL (1.7-8.2); BASOPHILS % (AUTO) 0.4 % (0-2); EOSINOPHILS % (AUTO) 0.5 % (0-6); HEMATOCRIT 40.4 % (36.0-47.0); HEMOGLOBIN 13.9 g/dL (12.0-15.5); LYMPHOCYTES % (AUTO) 9.3 % (13-45); MEAN CORPUSCULAR HEMOGLOBIN 32.1 pg (27.0-33.4); MEAN CORPUSCULAR HGB CONC 34.6 g/dL (32.0-36.0); MEAN CORPUSCULAR VOLUME 93 fl (80-97); MONOCYTES % (AUTO) 5.2 % (3-13); PLATELET COUNT 386 10^3/uL (150-450); RED BLOOD COUNT 4.34 10^6/uL (3.72-5.28); RED CELL DISTRIBUTION WIDTH 12.4 % (11.5-14.0); SEGMENTED NEUTROPHILS % (AUTO) 84.6 % (42-78); TOTAL CELLS COUNTED % (AUTO) 100 %; WHITE BLOOD COUNT 15.3 10^3/uL (4.0-10.5)
[2019-04-30 13:17] LABS: APPEARANCE,URINE CLOUDY; BILIRUBIN,URINE NEGATIVE (NEGATIVE); COLOR,URINE YELLOW; GLUCOSE, URINE NEGATIVE (NEGATIVE); KETONES,URINE NEGATIVE (NEGATIVE); LEUKOCYTE ESTERASE,URINE SMALL (NEGATIVE); NITRITE,URINE NEGATIVE (NEGATIVE); PROTEIN,URINE NEGATIVE (NEGATIVE); URINE SPECIFIC GRAVITY 1.021; UROBILINOGEN,URINE NEGATIVE mg/dL (<2.0)
[2019-04-30 13:30] LABS: ALBUMIN 4.2 g/dL (3.5-5.0); ALKALINE PHOSPHATASE 135 U/L (38-126); ANION GAP 13 (5-19); ASPARTATE AMINO TRANSFERASE 18 U/L (14-36); BILIRUBIN,DIRECT 0.1 mg/dL (0.0-0.4); BILIRUBIN,TOTAL 0.5 mg/dL (0.2-1.3); BLOOD UREA NITROGEN 9 mg/dL (7-20); CALCIUM 9.7 mg/dL (8.4-10.2); CARBON DIOXIDE 27 mmol/L (22-30); CHLORIDE 101 mmol/L (98-107); GLUCOSE 85 mg/dL (75-110); POTASSIUM 4.3 mmol/L (3.6-5.0); TOTAL PROTEIN 7.7 g/dL (6.3-8.2)
--- NOTE | 2019-04-30 13:40 | RADIOLOGY REPORT (SQ) ---
EXAM DESCRIPTION: U/S ABDOMEN LTD W/DOPPLER COMPLETED DATE/TIME: 04/30/2019 1:23 pm REASON FOR STUDY: suprapubic post-op incision infection COMPARISON: CT abdomen pelvis 04/02/2019 TECHNIQUE: Dynamic and static grayscale images acquired of the right lower quadrant anterior abdomin al wall in an area of redness and swelling, recorded on PACS. Additional selected color Doppler and s pectral images recorded. LIMITATIONS: None. FINDINGS: Right lower quadrant anterior abdominal wall ultrasound was performed in the area of redne ss and swelling. Deep to the skin incision, a 2.4 x 1 x 1 cm fluid collection is present with surrou nding edema in the adjacent fat. This could represent a small seroma, hematoma, or abscess. IMPRESSION: 2.4 x 1 x 1 cm fluid collection, subcutaneous fat right lower quadrant. Differential is small seroma, hematoma, or abscess TECHNICAL DOCUMENTATION: JOB ID: [id number] [employer]- All Rights Reserved Reading location - IP/workstation name: [email or web address]
[2019-04-30] MEDS ORDERED: LIDOCAINE 1%/EPINEPHRINE INJ 20 ML VIAL INJ ONE (19:54)
[2019-04-30] MEDS ORDERED: HYDROMORPHONE HCL INJ/PF 2 MG/ML AMPULE IV ONE (20:54)
[2019-04-30] MEDS ORDERED: ONDANSETRON HCL INJ/PF 4 MG/2 ML SDV IV ONE (20:55)
--- NOTE | 2019-04-30 21:22 | RADIOLOGY REPORT (SQ) ---
EXAM DESCRIPTION: [facility]: CT ABDOMEN PELVIS WITH IV CONTRAST CLINICAL HISTORY: 58 years Female; r/o abscess TECHNIQUE: CT of the abdomen and pelvis using intravenous contrast. All CT scans at this facility use dose modulation, iterative reconstruction, and/or weight based dosing when appropriate to reduce radiation dose to as low as reasonably achievable. COMPARISON: CT 04/02/2019 FINDINGS: Abdomen: Liver:No focal lesions. No intrahepatic ductal distention. Gallbladder:Nondistended Pancreas:Within normal limits Spleen:Within normal limits Right kidney:No hydronephrosis. No focal lesion. Left kidney:No hydronephrosis. No focal lesion. Adrenal glands:Within normal limits Vascular structures:Within normal limits Pelvis: In the midline anterior abdominal wall there is a peripherally enhancing fluid collection involving the musculature, 2 cm SI by 1.5 cm AP by 2.1 cm LR. There is adjacent soft tissue edema. This is new since prior exam. Superior to the bladder and anterior to the uterus there is a peripherally enhancing fluid collection 2 cm AP by 5 cm LR by 2.5 cm SI. There is oral contrast in the bowel adjacent to the fluid collection, but no contrast in the fluid collection. Small bowel: Moderate distention of multiple segments. Scattered air-fluid levels. Appendix: Not reliably identified. Colon: Contrast is seen into the proximal colon. No colonic distention or pericolonic edema. No free intraperitoneal fluid or air. Bones: No acute bone findings. Bladder: Mild superior wall thickening, adjacent to the fluid collection suspicious for abscess. IMPRESSION: 1. Fluid collection in the midline low anterior abdominal wall, likely intramuscular abscess 2. Fluid collection anterior to the uterus and superior to the bladder, likely abscess 3. Distended small bowel, either ileus or partial obstruction. Contrast does flow into the colon.
--- NOTE | 2019-04-30 21:42 | PDOC CONSULTATION ---
Consultation Consult Date: 04/30/19 Attending physician:: MADELAINE MOSS Provider Consulted: CLOVIS BAR Consult reason:: abd wall abscess. History of Present Illness Admission Date/PCP: 04/30/19 Patient complains of: lower abd pain History of Present Illness: JERED ROMERO is a 58 year old f female presents the emergency department for concern for a postop complication. Patient had an appendectomy 04/02/[address] Todd. For the past 2 weeks she has had intermittent low-grade fevers measured at 100 and she is now concerned because she has redness, warmth, and a "knot" over the suprapubic area. Exam: Well-appearing and nontoxic. Erythema over the suprapubic area, warmth to touch, there is an area of induration, patient is tachycardic with a rate of 114. Past Medical History Cardiac Medical History: Reports: Hypertension Past Surgical History Past Surgical History: Reports: Appendectomy Social History Smoking Status: Former Smoker Frequency of Alcohol Use: Rare Drugs: None Family History Family History: Reviewed & Not Pertinent Parental Family History Reviewed: No Children Family History Reviewed: NA Sibling(s) Family History Reviewed.: NA Medication/Allergy Home Medications: Dextroamphetamine/Amphetamine [Adderall 10 mg Tablet] 10 mg PO QID 04/02/19 Propranolol HCl [Inderal 40 mg Tablet] 40 mg PO Q8 04/02/19 Allergies/Adverse Reactions: No Known Allergies Allergy (Verified 04/02/19 15:46) Review of Systems Constitutional: PRESENT: fatigue Eyes: ABSENT: as per HPI, visual disturbances, other Ears: ABSENT: as per HPI, hearing changes, other Nose, Mouth, and Throat: ABSENT: as per HPI, headache(s), mouth pain, sore throat, vertigo, other Breasts: ABSENT: as per HPI, other Cardiovascular: ABSENT: as per HPI, chest pain, dyspnea on exertion, edema, orthropnea, palpitations, other Respiratory: ABSENT: as per HPI, cough, dyspnea, hemoptysis, sputum, other Genitourinary: ABSENT: as per HPI, difficulty urinating, dysuria, hematuria, nocturia, other Musculoskeletal: ABSENT: as per HPI, back pain, deformity, joint swelling, muscle weakness, other Integumentary: PRESENT: wounds - tenderness over lower abd incision Neurological: ABSENT: abnormal gait, abnormal speech, confusion, dizziness, focal weakness, syncope Psychiatric: ABSENT: as per HPI, anxiety, depression, hallucinations, homidical ideation, suicidal ideation, other Endocrine: ABSENT: as per HPI, cold intolerance, flushing, heat intolerance, menstrual abnormalities, polydipsia, polyphagia, polyuria, other Allergic/Immunologic: ABSENT: as per HPI, seasonal rhinorrhea, other Physical Exam Vital Signs: Temp Pulse Resp BP Pulse Ox 99 F 113 H 16 150/87 H 99 04/30/19 11:43 04/30/19 11:43 04/30/19 11:43 04/30/19 11:43 04/30/19 11:43 Intake & Output 04/29/19 04/30/19 05/01/19 06:59 06:59 06:59 Weight 71.8 kg General appearance: PRESENT: no acute distress Head exam: PRESENT: normocephalic Eye exam: PRESENT: EOMI Mouth exam: PRESENT: dry mucosa, moist Neck exam: PRESENT: full ROM Respiratory exam: PRESENT: clear to auscultation sheri Cardiovascular exam: PRESENT: RRR Pulses: PRESENT: normal femoral pulses, normal dorsalis pedis pul Vascular exam: PRESENT: normal capillary refill GI/Abdominal exam: PRESENT: tenderness - erythema and tenderness and swelling over lower suprpubic incisin Rectal exam: PRESENT: deferred Extremities exam: PRESENT: full ROM Musculoskeletal exam: PRESENT: full ROM Neurological exam: PRESENT: alert, awake, oriented to person, oriented to place Psychiatric exam: PRESENT: anxious Skin exam: PRESENT: dry Results Laboratory Results: 04/30/19 12:40 04/30/19 12:40 04/30/19 04/30/19 04/30/19 12:40 12:40 12:40 WBC 15.3 H RBC 4.34 Hgb 13.9 Hct 40.4 MCV 93 MCH 32.1 MCHC 34.6 RDW 12.4 Plt Count 386 Seg Neutrophils % 84.6 H Sodium 141.4 Potassium 4.3 Chloride 101 Carbon Dioxide 27 Anion Gap 13 BUN 9 Creatinine 0.61 Est GFR ( Amer) > 60 Glucose 85 Calcium 9.7 Total Bilirubin 0.5 AST 18 Alkaline Phosphatase 135 H Total Protein 7.7 Albumin 4.2 Urine Color YELLOW Urine Appearance CLOUDY Urine pH 5.0 Ur Specific [place] 1.021 Urine Protein NEGATIVE Urine Glucose (UA) NEGATIVE Urine Ketones NEGATIVE Urine Blood SMALL H Urine Nitrite NEGATIVE Ur Leukocyte Esterase SMALL H Urine WBC (Auto) 6 Urine RBC (Auto) 11 Impressions: Abdomen/Pelvis CT 04/30/19 00:00 IMPRESSION: 1. Fluid collection in the midline low anterior abdominal wall, likely intramuscular abscess 2. Fluid collection anterior to the uterus and superior to the bladder, likely abscess 3. Distended small bowel, either ileus or partial obstruction. Contrast does flow into the colon. Abdomen Ultrasound 04/30/19 12:31 IMPRESSION: 2.4 x 1 x 1 cm fluid collection, subcutaneous fat right lower quadrant. Differential is small seroma, hematoma, or abscess Assessment & Plan - Plan Summary Plan Summary: suprpubic abd wall abscess and a question of small fluid collection above uterus on ct plan bedside i and d and packing will start po bactrim and flagyl pt will recheck in er on friday for pack removal and repack then instructed to call surgery clinic friday morning and come in for wound check.
--- NOTE | 2019-04-30 21:44 | Operative Report ---
Bedside Procedure - History of Present Illness Indication for Procedure: abdominal wall abscess Date: 04/30/19 Provider: CLOVIS BAR - Incision and Drainage Lower Abdomen Time completed: 08:00 Type: Simple Anesthetic type: 1% Lidocaine w/epi mL's of anesthetic: 11 Blade size: 11 Needle Size: 18 I&D procedure: Chlorprep applied, Iodoform packing placed, Sterile dressing applied Incision Method: Incision made by scalpel Amount/type of drainage: 20cc pus
--- NOTE | 2019-04-30 22:25 | ER Document Report ---
ED General - General Chief Complaint: Post Surgical Pain Stated Complaint: POST OP PAIN/INCISION SITE PAIN Time Seen by Provider: 04/30/19 12:28 TRAVEL OUTSIDE OF THE [place] IN LAST 30 DAYS: No - Related Data Allergies/Adverse Reactions: No Known Allergies Allergy (Verified 04/02/19 15:46) Home Medications: Propranolol Past Medical History - Social History Smoking Status: Former Smoker Family History: Reviewed & Not Pertinent Patient has suicidal ideation: No Patient has homicidal ideation: No - Past Medical History Cardiac Medical History: Reports: Hx Hypertension Past Surgical History: Reports: Hx Appendectomy - Immunizations Hx Diphtheria, Pertussis, Tetanus Vaccination: Yes Review of Systems - Review of Systems Notes: Constitutional: Negative for fever. HENT: Negative for sore throat. Eyes: Negative for visual changes. Cardiovascular: Negative for chest pain. Respiratory: Negative for shortness of breath. Gastrointestinal: + abdominal pain Genitourinary: Negative for dysuria. Musculoskeletal: Negative for back pain. Skin: Negative for rash. Neurological: Negative for headaches, weakness or numbness. 10 point ROS negative except as marked above and in HPI. Physical Exam - Vital signs Vitals: Temp Pulse Resp BP Pulse Ox 99 F 113 H 16 150/87 H 99 04/30/19 11:43 04/30/19 11:43 04/30/19 11:43 04/30/19 11:43 04/30/19 11:43 - Notes Notes: Reviewed vital signs and nursing note as charted by RN. CONSTITUTIONAL: Well-appearing, well-nourished; attentive, alert and interactive HEAD: Normocephalic; atraumatic; No swelling EYES: PERRL; Conjunctivae clear, no drainage; EOMI ENT: External ears without lesions; External auditory canal is patent; TMs without erythema, landmarks clear and well visualized; no rhinorrhea; Pharynx without erythema or lesions, no tonsillar hypertrophy, airway patent, mucous membranes pink and moist NECK: Supple, no cervical lymphadenopathy, no masses CARD: Regular rate and rhythm; no murmurs, no rubs, no gallops, capillary refill < 2 seconds, symmetric pulses RESP: Respiratory rate and effort are normal. There is normal chest excursion. No respiratory distress, no retractions, no stridor, no nasal flaring, no accessory muscle use. The lungs are clear to auscultation bilaterally, no wheezing, no rales, no rhonchi. ABD/GI: Surgical site with induration and erythema with signs of infection. Normal bowel sounds; non-distended; soft, non-tender, no rebound, no guarding, no palpable organomegaly EXT: Normal ROM in all joints; non-tender to palpation; no effusions, no edema SKIN: Normal color for age and race; warm; dry; good turgor; no acute lesions noted NEURO: No facial asymmetry; Moves all extremities equally; Motor and sensory function intact Course - Re-evaluation Re-evalutation: 04/30/19 22:21 I assumed care of this patient from Dr. Barrientos, surgery has been consulted Dr. Ardon, CT scan was requested. 04/30/19 22:26 Patient was seen by the general surgeon and a incision and drainage procedure with packing was performed. The patient is being discharged on antibiotics (Flagyl and Bactrim) selected by the general surgeon. And follow-up is planned for Friday05/02/2019. - Vital Signs Vital signs: Temp Pulse Resp BP Pulse Ox 99 F 113 H 16 150/87 H 99 04/30/19 11:43 04/30/19 11:43 04/30/19 11:43 04/30/19 11:43 04/30/19 11:43 - Laboratory Result Diagrams: 04/30/19 12:40 04/30/19 12:40 Laboratory results interpreted by me: 04/30/19 04/30/19 04/30/19 12:40 12:40 12:40 WBC 15.3 H Lymph % (Auto) 9.3 L Absolute Neuts (auto) 12.9 H Seg Neutrophils % 84.6 H Alkaline Phosphatase 135 H Urine Blood SMALL H Ur Leukocyte Esterase SMALL H - Diagnostic Test Radiology reviewed: Image reviewed - CT scan of the abdomen and pelvis with oral contrast: Fluid collection in the mid low anterior abdominal wall, intramuscular abscess. Fluid collection anterior to uterus and superior to the bladder, likely abscess. Distended small bowel likely ileus or partial obstruction. Contrast is noted in the colon., Reports reviewed Discharge - Discharge Clinical Impression: Postoperative abscess Postoperative infection Qualifiers: Encounter type: initial encounter Postoperative infection type: deep incisional surgical site Qualified Code(s): T81.42XA - Infection following a procedure, deep incisional surgical site, initial encounter Condition: Stable Disposition: HOME, SELF-CARE Instructions: Abscess ([facility]), Post Incision and Drainage, Trimethoprim-Sulfa ([facility]), Oral Narcotic Medication ([facility]) Additional Instructions: Patient is to return to the emergency department on 05/02/2019 for a recheck of the wound and packing. The surgicalist station captain should be notified.
[2019-04-30 22:49] VITALS: BP 125/73
== END 2019-04-30 22:48 | disposition home or self-care (01) ==
LOC: ER 11:33
DX: T81.42XA Infection following a procedure, deep incisional surgical site, initial encounter (principal); Y83.6 Removal of other organ (partial) (total) as the cause of abnormal reaction of the patient, or of later complication, without mention of misadventure at the time of the procedure; Z90.49 Acquired absence of other specified parts of digestive tract; I10 Essential (primary) hypertension; Z87.891 Personal history of nicotine dependence; Z79.899 Other long term (current) drug therapy
CPT/HCPCS: 36415; 87040; 85025; 80053; 81001; 76705; 93976; 74177; 10060; J3490; J1170; J2405; 96374; 96375; 99284

== ENCOUNTER 2019-05-02 12:10 | Observation (INO) | payer SELFPAY ==
--- NOTE | 2019-05-02 12:25 | ER Document Report ---
ED Medical Screen (RME) - General Chief Complaint: Wound Recheck Stated Complaint: WOUND RECHECK Time Seen by Provider: 05/02/19 12:12 Mode of Arrival: Ambulatory Information source: Patient Notes: This 58-year-old female presents emergency department for wound recheck. She reports she had a appendectomy completed here at [facility] April 02. She returned April 30 with an abscess to the incision site. The surgicalist on- call open it up and drained it. She was instructed to return here for packing removal and to have the surgeon on-call look at it again. Packing removed. Patient reports she believes it looks better although is still very tender to touch. Dr. Rossi contacted he reports he will call me back. 1300 Dr. Rossi is in the emergency department. And went in to assess patient. Request Hep-Lock to give patient sedation so he can open the wound clean it more. I have greeted and performed a rapid initial assessment of this patient. A comprehensive ED assessment and evaluation of the patient, analysis of test results and completion of the medical decision making process will be conducted by additional ED providers. Dictation of this chart was performed using voice recognition software; therefore, there may be some unintended grammatical errors. TRAVEL OUTSIDE OF THE [place] IN LAST 30 DAYS: No - HPI Onset: Other Quality of pain: Achy Associated Symptoms: None Exacerbated by: Movement Relieved by: Denies Similar symptoms previously: Yes Recently seen / treated by doctor: Yes - Related Data Allergies/Adverse Reactions: No Known Allergies Allergy (Verified 04/02/19 15:46) Past Medical History - General Information source: Patient - Social History Chew tobacco use (# tins/day): No Frequency of alcohol use: None Drug Abuse: None Family history: None - Past Medical History Cardiac Medical History: Reports: Hx Hypertension Past Surgical History: Reports: Hx Appendectomy - Immunizations Hx Diphtheria, Pertussis, Tetanus Vaccination: Yes Review of Systems - Review of Systems Notes: Review HPI for review of systems., All other systems negative Physical Exam - Vital signs Vitals: Temp Pulse Resp BP Pulse Ox 98.1 F 100 18 149/95 H 98 05/02/19 12:13 05/02/19 12:13 05/02/19 12:13 05/02/19 12:13 05/02/19 12:13 Course - Vital Signs Vital signs: Temp Pulse Resp BP Pulse Ox 98.1 F 100 18 149/95 H 98 05/02/19 12:13 05/02/19 12:13 05/02/19 12:13 05/02/19 12:13 05/02/19 12:13
--- NOTE | 2019-05-02 14:02 | ER Document Report ---
ED General - General Chief Complaint: Wound Recheck Stated Complaint: WOUND RECHECK Time Seen by Provider: 05/02/19 12:12 Mode of Arrival: Ambulatory TRAVEL OUTSIDE OF THE [place] IN LAST 30 DAYS: No - HPI Notes: Patient is a 58-year-old female who presents to the emergency department for evaluation of a wound recheck. The patient had a laparoscopic appendectomy performed about a month ago. She had a wound infection, I&D performed on Friday. She states she is here for a wound check. It seems to have gotten worse. No anila fevers or chills, no nausea or vomiting. She has increased pain. At the time of my evaluation, Dr. Rossi had already seen the patient, the decision was made to take the patient to the operating room. - Related Data Allergies/Adverse Reactions: No Known Allergies Allergy (Verified 04/02/19 15:46) Home Medications: Propanolol, Adderall Past Medical History - General Information source: Patient - Social History Smoking Status: Former Smoker Chew tobacco use (# tins/day): No Frequency of alcohol use: None Drug Abuse: None Family History: Reviewed & Not Pertinent Patient has suicidal ideation: No Patient has homicidal ideation: No - Past Medical History Cardiac Medical History: Reports: Hx Hypertension Psychiatric Medical History: Reports: Hx Attention Deficit Hyperactivity Disorder Past Surgical History: Reports: Hx Appendectomy - Immunizations Hx Diphtheria, Pertussis, Tetanus Vaccination: Yes Review of Systems - Review of Systems Constitutional: No symptoms reported EENT: No symptoms reported Cardiovascular: No symptoms reported Respiratory: No symptoms reported Gastrointestinal: No symptoms reported Genitourinary: No symptoms reported Musculoskeletal: No symptoms reported Skin: See HPI Neurological/Psychological: No symptoms reported Physical Exam - Vital signs Vitals: Temp Pulse Resp BP Pulse Ox 98.1 F 100 18 149/95 H 98 05/02/19 12:13 05/02/19 12:13 05/02/19 12:13 05/02/19 12:13 05/02/19 12:13 - Notes Notes: This is a pleasant 58-year-old female, appears her stated age. She is tearful at the time of my examination. Head is normocephalic and atraumatic, pupils are equal round, reactive to light. Oral mucosa is moist. Heart regular rate and rhythm, lungs are clear to oscillation bilaterally. Examination of the abdomen yields an approximately 6 x 8 cm area of diffuse erythema, not well demarcated, surrounding a 2 cm linear incision in the middle of the abdomen. This is inferior to the umbilicus. Some fluctuance and induration are noted. Extremities without cyanosis or clubbing. Course - Re-evaluation Re-evalutation: 05/02/19 14:00 Patient presents to the emergency department for evaluation. She was screened, and surgery consult was obtained. Evidently the patient is not tolerating any sort of evaluation without some sort of sedation on board. Dr. Rossi has made the decision to take the patient to the operating room. He has stated that he will be taking over her care. I did order blood work, as per his request. Patient will be taken to the OR in stable condition. - Vital Signs Vital signs: Temp Pulse Resp BP Pulse Ox 98.1 F 100 18 149/95 H 98 05/02/19 12:13 05/02/19 12:13 05/02/19 12:13 05/02/19 12:13 05/02/19 12:13 Discharge - Discharge Clinical Impression: Postoperative abscess Postoperative infection Qualifiers: Encounter type: subsequent encounter Postoperative infection type: superficial incisional surgical site Qualified Code(s): T81.41XD - Infection following a procedure, superficial incisional surgical site, subsequent encounter Condition: Stable Disposition: ADMITTED OBSERVATION Admitting Provider: Surgicalist - [facility] Admitted: OR
--- NOTE | 2019-05-02 14:09 | PDOC H&P ---
History of Present Illness Patient complains of: Wound drainage History of Present Illness: JERED ROMERO is a 58 year old female Presents to the emergency department for scheduled wound check with the emergency department staff. The patient is 1 month status post laparoscopic appendectomy by Dr. Gunner Valentin. The patient was found to have acute appendicitis with suppuration she had an uneventful postoperative course. 2 days ago she was seen in the emergency department with infection involving her super pubic port site. She was found on CT scan of the abdomen and pelvis to have a soft tissue, and intramuscular abscess of the anterior abdominal wall at the super pubic port site, and a possible intra-peritoneal abscess adjacent to the bladder and uterus. Surgery was consulted, and under local anesthesia in the emergency department, Dr. Santhosh Ardon debrided the suprapubic wound of a significant amount of pus. Patient had the wound packed, and was sent home on p.o. Bactrim and Flagyl. She returned today where her wound check revealed persisting erythema and purulent drainage from the suprapubic site. Discussion was had with Dr. Ardon, and 04/30/2019 imaging reviewed. We recommended that the patient admitted to the hospital, taken to the operating room, and undergo a more formal abdominal wall debridement, packing, initiation of dressing changes and intravenous antibiotics. Of note the patient is very anxious throughout the interview and even tearful. Past Medical History Past Medical History: Hypertension and ADHD, smoker Cardiac Medical History: Reports: Hypertension Past Surgical History Past Surgical History: Appendectomy, laparoscopic, March 2018, [facility] Past Surgical History: Reports: Appendectomy Social History Smoking Status: Never Smoker Electronic Cigarette use?: No Frequency of Alcohol Use: Rare Drugs: None Family History Family History: None, Reviewed & Not Pertinent Parental Family History Reviewed: No Children Family History Reviewed: No Sibling(s) Family History Reviewed.: No Medication/Allergy Home Medications: Dextroamphetamine/Amphetamine [Adderall 10 mg Tablet] 10 mg PO QID 04/02/19 Propranolol HCl [Inderal 40 mg Tablet] 40 mg PO Q8 04/02/19 Allergies/Adverse Reactions: No Known Allergies Allergy (Verified 04/02/19 15:46) Review of Systems Constitutional: PRESENT: as per HPI Eyes: ABSENT: visual disturbances Ears: ABSENT: hearing changes Cardiovascular: ABSENT: chest pain, dyspnea on exertion, edema, orthropnea, palpitations Respiratory: ABSENT: cough, hemoptysis Gastrointestinal: PRESENT: other - Patient denies nausea vomiting diarrhea or constipation. Psychiatric: PRESENT: as per HPI, anxiety, hallucinations, other. ABSENT: depression, homidical ideation, suicidal ideation Physical Exam Vital Signs: Temp Pulse Resp BP Pulse Ox 98.1 F 100 18 149/95 H 98 05/02/19 12:13 05/02/19 12:13 05/02/19 12:13 05/02/19 12:13 05/02/19 12:13 Intake & Output 05/01/19 05/02/19 05/03/19 06:59 06:59 06:59 Weight 71 kg General appearance: PRESENT: other - Anxious Head exam: PRESENT: normocephalic Eye exam: PRESENT: EOMI Mouth exam: PRESENT: dry mucosa Neck exam: PRESENT: full ROM Respiratory exam: PRESENT: clear to auscultation sheri Cardiovascular exam: PRESENT: RRR Pulses: PRESENT: normal carotid pulses, normal radial pulses GI/Abdominal exam: PRESENT: other - Suprapubic port site open horizontally, with purulent discharge and surrounding erythema; very tender to touch. Rectal exam: PRESENT: deferred Musculoskeletal exam: PRESENT: full ROM Neurological exam: PRESENT: oriented to person, oriented to place, oriented to time, oriented to situation Psychiatric exam: PRESENT: anxious Assessment & Plan - Diagnosis (1) Postoperative abscess Is this a current diagnosis for this admission?: Yes Plan: Impression: Abdominal wall infection involving skin, subcutaneous tissue and muscle at the suprapubic port site 1 month following laparoscopic appendectomy for acute appendicitis. Status post bedside I&D 48 hours ago with persisting infection needs further debridement Recommendations: 1. Further debridement, possible drain placement, with more deliberate dressing changes will be required to gain control of the septic focus. This was explained to the patient and her daughter. Because of the patient's anxiety level, he is experiencing emergency department, and the uncertainty as to the depth of this infection, I suggested the debridement be performed in the operating room under LMAC anesthesia. 2. In addition CT scan findings from 2 days ago demonstrated an intraperitoneal hypoechogenic 2 cm focus suspicious for abscess. Whether this communicates with the abdominal wall infection is uncertain. At this moment, my focus will be gasohail addison control of the abdominal wall infection, and managing the intraperitoneal finding on CT scan and expected basis. 3. I discussed the above with patient, patient's daughter, and emergency department staff. (2) Status post laparoscopic appendectomy Is this a current diagnosis for this admission?: Yes (3) Smoker Is this a current diagnosis for this admission?: Yes - Time Time Spent: 50 to 70 Minutes Critical Time spent with patient: 15-24 minutes Medications reviewed and adjusted accordingly: Yes Anticipated discharge: Home - Inpatient Certification Based on my medical assessment, after consideration of the patient's comorbidities, presenting symptoms, or acuity I expect that the services needed warrant INPATIENT care.: Yes I certify that my determination is in accordance with my understanding of Medicare's requirements for reasonable and necessary INPATIENT services [42 CFR 412.3e].: Yes Medical Necessity: Need For IV Fluids, Need for Pain Control, Need for IV Antibiotics, Need for Surgery
[2019-05-02] MEDS ORDERED: RINGERS SOLUTION,LACTATED 1,000 ML IV PRN (14:11)
[2019-05-02 14:32] LABS: ABSOLUTE EOSINOPHILS # (AUTO) 0.1 10^3/uL (0.0-0.6); ABSOLUTE LYMPHOCYTES (AUTO) 1.2 10^3/uL (0.5-4.7); ABSOLUTE MONOCYTES (AUTO) 0.7 10^3/uL (0.1-1.4); ABSOLUTE NEUT (AUTO) 9.8 10^3/uL (1.7-8.2); BASOPHILS % (AUTO) 0.2 % (0-2); EOSINOPHILS % (AUTO) 1.2 % (0-6); HEMATOCRIT 35.7 % (36.0-47.0); HEMOGLOBIN 12.3 g/dL (12.0-15.5); MEAN CORPUSCULAR HGB CONC 34.5 g/dL (32.0-36.0); MEAN CORPUSCULAR VOLUME 93 fl (80-97); MONOCYTES % (AUTO) 6.1 % (3-13); PLATELET COUNT 325 10^3/uL (150-450); RED BLOOD COUNT 3.85 10^6/uL (3.72-5.28); RED CELL DISTRIBUTION WIDTH 12.2 % (11.5-14.0); SEGMENTED NEUTROPHILS % (AUTO) 82.5 % (42-78); TOTAL CELLS COUNTED % (AUTO) 100 %; WHITE BLOOD COUNT 11.9 10^3/uL (4.0-10.5)
[2019-05-02] MEDS ORDERED: LIDOCAINE 1% INJ-PF (10 MG/ML) 30 ML SDV ONE (14:37)
[2019-05-02 14:49] LABS: ALBUMIN 3.6 g/dL (3.5-5.0); ALKALINE PHOSPHATASE 123 U/L (38-126); ANION GAP 12 (5-19); ASPARTATE AMINO TRANSFERASE 17 U/L (14-36); BILIRUBIN,DIRECT 0.2 mg/dL (0.0-0.4); BILIRUBIN,TOTAL 0.3 mg/dL (0.2-1.3); BLOOD UREA NITROGEN 14 mg/dL (7-20); CALCIUM 8.9 mg/dL (8.4-10.2); CARBON DIOXIDE 23 mmol/L (22-30); CHLORIDE 104 mmol/L (98-107); GLUCOSE 104 mg/dL (75-110); POTASSIUM 3.9 mmol/L (3.6-5.0); TOTAL PROTEIN 6.8 g/dL (6.3-8.2)
[2019-05-02] MEDS ORDERED: MIDAZOLAM 2 MG/2 ML INJ ONE (14:53)
[2019-05-02] MEDS ORDERED: FENTANYL CITRATE INJ/PF 100 MCG/2 ML AMPUL ONE (14:53)
[2019-05-02] MEDS ORDERED: ONDANSETRON HCL INJ/PF 4 MG/2 ML SDV ONE (14:54)
[2019-05-02] MEDS ORDERED: DEXAMETHASONE SOD PHOSPHATE INJ 4 MG/1 ML VIAL ONE (14:54)
[2019-05-02] MEDS ORDERED: PROPOFOL INJ 200 MG/20 ML VIAL IV ONE (14:54)
[2019-05-02] MEDS ORDERED: AMPICILLIN SODIUM/SULBACTAM NA 3 GM in NORMAL SALINE 100 ML IV ONE ×2 (15:00→17:15)
[2019-05-02] MEDS ORDERED: AMPICILLIN SOD/SULBACTAM 3 GM VIAL ONE ×2 (15:03→17:18)
[2019-05-02] MEDS ORDERED: AMPICILLIN SOD/SULBACTAM 1.5 GM VIAL ONE (15:03)
[2019-05-02] MEDS ORDERED: PROMETHAZINE HCL INJ 25 MG/1 ML VIAL IV PRN ×2 (15:22)
[2019-05-02] MEDS ORDERED: DIPHENHYDRAMINE HCL 50 MG/ML VIAL IV PRN (15:22)
[2019-05-02] MEDS ORDERED: FENTANYL CITRATE INJ/PF 100 MCG/2 ML AMPUL IV PRN ×3 (15:22)
[2019-05-02] MEDS ORDERED: MORPHINE SULFATE 10 MG/ML INJ IV PRN (15:22)
[2019-05-02] MEDS ORDERED: MEPERIDINE HCL/PF INJ 25 MG/1 ML DISP.SYRIN IV PRN (15:22)
[2019-05-02] MEDS ORDERED: KETOROLAC TROMETHAMINE 10 MG TABLET PO PRN (15:39)
--- NOTE | 2019-05-02 15:46 | Operative Report ---
Operative Report DATE OF SURGERY: 05/02/19 PREOPERATIVE DIAGNOSIS: Abdominal wall infection at site of suprapubic laparosc opic port placement POSTOPERATIVE DIAGNOSIS: Same involving skin, subcutaneous tissue, anterior rectus sheath and rectus muscle OPERATION: Excisional debridement of skin, subcutaneous tissue, limited portion of anterior rectus sheath with knife, cautery, and irrigation and packing of wound SURGEON: MADDISON GARCIA ANESTHESIA: LMAC TISSUE REMOVED OR ALTERED: Infected skin and subcutaneous tissue and fascia COMPLICATIONS: None ESTIMATED BLOOD LOSS: 20 cc INTRAOPERATIVE FINDINGS: See below PROCEDURE: The patient was seen in the preop holding her than taken to the main operating where LMAC anesthesia was induced. Arms were abducted, abdomen suprapubic area clipped of hair, the prepped with Betadine Surgical plan surgical timeout were conducted. The horizontally oriented suprapubic incision which was open was anesthetized with 1% plain lidocaine. Using a #10 blade, the incision was excised in elliptical fashion to the extent of 2-1/2 cm x 1 cm in length and width. We now debrided the subcutaneous tissue of the multiple pockets of loculated pus. Requisite material sent for Gram stain culture and sensitivity. Approximately 4 g of infected fat debrided from the subcutaneous space, opening up a pocket approximately 4 cm cephalad and 4 cm caudad to the initial exposure incision we also debrided the fibrotic tissue overlying the anterior rectus sheath. The rectus sheath was elevated, and evacuated some loose fluid from under the anterior rectus sheath on top of the rectus muscle. The rectus muscle was not formally debrided. There was no formal entry into the retro-rectus space or the peritoneal cavity. We hypothesized the tract from the initial port placement had closed secondary to fibrosis. We irrigated the moderate size pocket developed after debridement with a liter of saline. Small bleeders were cauterized as encountered. We thought that the operation was complete with the sponge needle count correct. Septic source control was felt to have been achieved. The wound was packed with 2 feet of 1/2 inch iodoform packing. 4 x 4's applied. Patient tolerated the procedure well. She was taken to recovery in stable condition Plan: 1. Continue intravenous antibiotics empirically for 24 hours 2. Follow-up on intraoperative wound cultures 3. Anticipate dressing change De Jesus; hopefully patient can be managed on an outpatient basis in the next 24 to 36 hours.
[2019-05-02] MEDS: DOCUSATE SODIUM 100 MG CAPSULE PO SCH (17:36)
[2019-05-02] MEDS: CLINDAMYCIN 600 MG/D5W RTU 600 MG/50 ML RTUPB IV SCH (21:03)
[2019-05-02] MEDS: KETOROLAC TROMETHAMINE INJ/PF 30 MG/1 ML SDV IV PRN (22:25)
[2019-05-03] MEDS: CLINDAMYCIN 600 MG/D5W RTU 600 MG/50 ML RTUPB IV SCH ×3 (05:39→21:33)
--- NOTE | 2019-05-03 09:36 | PDOC PROGRESS REPORT ---
Subjective Progress Note for:: 05/03/19 Subjective:: mild pains along suprapubic area Reason For Visit: ABDOMINAL WALL INFECTION Physical Exam Vital Signs: Temp Pulse Resp BP Pulse Ox 98.4 F 85 12 110/65 98 05/03/19 07:27 05/03/19 07:27 05/03/19 07:27 05/03/19 07:27 05/03/19 07:27 Intake & Output 05/02/19 05/03/19 05/04/19 06:59 06:59 06:59 Intake Total 1480 1000 Output Total 255 Balance 1225 1000 Weight 69.7 kg Exam: packing removed from suprapubic area and repacked with 0.25 iodoform gauze. Small aount of serosanguinous drainage and mild erythema surrounding I&D site Results Laboratory Results: 05/02/19 14:12 05/02/19 14:12 05/02/19 05/02/19 14:12 14:12 WBC 11.9 H RBC 3.85 Hgb 12.3 Hct 35.7 L MCV 93 MCH 32.0 MCHC 34.5 RDW 12.2 Plt Count 325 Seg Neutrophils % 82.5 H Sodium 139.4 Potassium 3.9 Chloride 104 Carbon Dioxide 23 Anion Gap 12 BUN 14 Creatinine 0.60 Est GFR ( Amer) > 60 Glucose 104 Calcium 8.9 Total Bilirubin 0.3 AST 17 Alkaline Phosphatase 123 Total Protein 6.8 Albumin 3.6 Assessment & Plan - Diagnosis (1) Postoperative abscess Is this a current diagnosis for this admission?: Yes - Time Time Spent with patient: 15-24 minutes - Inpatient Certification Medical Necessity: Need for IV Antibiotics - Plan Summary Plan Summary: Await C&S results ContinueIV Ancef Check WBC in am. and if trending down plan Discharge in 24-48 hrs. on po antibiotics
[2019-05-03] MEDS: DOCUSATE SODIUM 100 MG CAPSULE PO SCH ×2 (11:21→17:43)
[2019-05-03] MEDS: KETOROLAC TROMETHAMINE INJ/PF 30 MG/1 ML SDV IV PRN (21:33)
[2019-05-04 05:17] LABS: ABSOLUTE EOSINOPHILS # (AUTO) 0.1 10^3/uL (0.0-0.6); ABSOLUTE LYMPHOCYTES (AUTO) 1.6 10^3/uL (0.5-4.7); ABSOLUTE MONOCYTES (AUTO) 0.7 10^3/uL (0.1-1.4); ABSOLUTE NEUT (AUTO) 6.9 10^3/uL (1.7-8.2); BASOPHILS % (AUTO) 0.2 % (0-2); EOSINOPHILS % (AUTO) 0.6 % (0-6); HEMATOCRIT 33.8 % (36.0-47.0); HEMOGLOBIN 11.6 g/dL (12.0-15.5); LYMPHOCYTES % (AUTO) 17.1 % (13-45); MEAN CORPUSCULAR HEMOGLOBIN 32.1 pg (27.0-33.4); MEAN CORPUSCULAR HGB CONC 34.2 g/dL (32.0-36.0); MEAN CORPUSCULAR VOLUME 94 fl (80-97); MONOCYTES % (AUTO) 7.5 % (3-13); PLATELET COUNT 350 10^3/uL (150-450); RED BLOOD COUNT 3.61 10^6/uL (3.72-5.28); RED CELL DISTRIBUTION WIDTH 12.5 % (11.5-14.0); SEGMENTED NEUTROPHILS % (AUTO) 74.6 % (42-78); TOTAL CELLS COUNTED % (AUTO) 100 %; WHITE BLOOD COUNT 9.2 10^3/uL (4.0-10.5)
[2019-05-04] MEDS: CLINDAMYCIN 600 MG/D5W RTU 600 MG/50 ML RTUPB IV SCH (05:29)
[2019-05-04] MEDS: DOCUSATE SODIUM 100 MG CAPSULE PO SCH (09:37)
--- NOTE | 2019-05-04 09:43 | PDOC DISCHARGE SUMMARY ---
General - Admit/Disc Date/PCP Admission Date/Primary Care Provider: 05/02/19 14:23 Discharge Date: 05/04/19 - Discharge Diagnosis Final Diagnosis: Suprapubic abscess - Assessment Summary: Patient had laparoscopic appendectomy for acute appendicitis on 04/04/[address] Valentin. Patient came back on 05/02/2019 and underwent incision and drainage of suprapubic abscess on 1 of the laparoscopic ports. Abscess apparently did not go down beyond the fascia. Patient white count was slightly elevated on admission and came down to normal on the day of discharge. Culture showed E. coli sensitive to cefazolin. Patient was then discharged on p.o. Keflex 500 mg p.o. 4 times daily for the next 7 days. Patient also instructed to apply small amount of packing and wound on a daily basis for the next week. Patient subsequently discharged improved 05/04/2019. Patient be followed up in the surgical clinic in 2 weeks. - Additional Information Resuscitation Status: Full Code Home Medications: Dextroamphetamine/Amphetamine [Adderall 10 mg Tablet] 10 mg PO QID 04/02/19 Propranolol HCl [Inderal 40 mg Tablet] 40 mg PO Q8 04/02/19 History of Present Illiness History of Present Illness: JERED ROMERO is a 58 year old female Physical Exam Vital Signs: Temp Pulse Resp BP Pulse Ox 98.3 F 79 20 133/74 H 98 05/04/19 08:30 05/04/19 08:30 05/04/19 08:30 05/04/19 08:30 05/04/19 08:30 Intake & Output 05/03/19 05/04/19 05/05/19 06:59 06:59 06:59 Intake Total 1480 1150 Output Total 255 Balance 1225 1150 Weight 69.7 kg 69.7 kg Results Laboratory Results: WBC 9.2 10^3/uL (4.0-10.5) 05/04/19 04:14 RBC 3.61 10^6/uL (3.72-5.28) L 05/04/19 04:14 Hgb 11.6 g/dL (12.0-15.5) L 05/04/19 04:14 Hct 33.8 % (36.0-47.0) L 05/04/19 04:14 MCV 94 fl (80-97) 05/04/19 04:14 MCH 32.1 pg (27.0-33.4) 05/04/19 04:14 MCHC 34.2 g/dL (32.0-36.0) 05/04/19 04:14 RDW 12.5 % (11.5-14.0) 05/04/19 04:14 Plt Count 350 10^3/uL (150-450) 05/04/19 04:14 Lymph % (Auto) 17.1 % (13-45) 05/04/19 04:14 Nolan % (Auto) 7.5 % (3-13) 05/04/19 04:14 Eos % (Auto) 0.6 % (0-6) 05/04/19 04:14 Baso % (Auto) 0.2 % (0-2) 05/04/19 04:14 Absolute Neuts (auto) 6.9 10^3/uL (1.7-8.2) 05/04/19 04:14 Absolute Lymphs (auto) 1.6 10^3/uL (0.5-4.7) 05/04/19 04:14 Absolute Monos (auto) 0.7 10^3/uL (0.1-1.4) 05/04/19 04:14 Absolute Eos (auto) 0.1 10^3/uL (0.0-0.6) 05/04/19 04:14 Absolute Basos (auto) 0.0 10^3/uL (0.0-0.2) 05/04/19 04:14 Seg Neutrophils % 74.6 % (42-78) 05/04/19 04:14 Sodium 139.4 mmol/L (137-145) 05/02/19 14:12 Potassium 3.9 mmol/L (3.6-5.0) 05/02/19 14:12 Chloride 104 mmol/L (98-107) 05/02/19 14:12 Carbon Dioxide 23 mmol/L (22-30) 05/02/19 14:12 Anion Gap 12 (5-19) 05/02/19 14:12 BUN 14 mg/dL (7-20) 05/02/19 14:12 Creatinine 0.60 mg/dL (0.52-1.25) 05/02/19 14:12 Est GFR ( Amer) > 60 (>60) 05/02/19 14:12 Est GFR (MDRD) Non-Af > 60 (>60) 05/02/19 14:12 Glucose 104 mg/dL (75-110) 05/02/19 14:12 Calcium 8.9 mg/dL (8.4-10.2) 05/02/19 14:12 Total Bilirubin 0.3 mg/dL (0.2-1.3) 05/02/19 14:12 Direct Bilirubin 0.2 mg/dL (0.0-0.4) 05/02/19 14:12 Neonat Total Bilirubin Not Reportable 05/02/19 14:12 Neonat Direct Bilirubin Not Reportable 05/02/19 14:12 Neonat Indirect Bili Not Reportable 05/02/19 14:12 AST 17 U/L (14-36) 05/02/19 14:12 ALT 11 U/L (<35) 05/02/19 14:12 Alkaline Phosphatase 123 U/L (38-126) 05/02/19 14:12 Total Protein 6.8 g/dL (6.3-8.2) 05/02/19 14:12 Albumin 3.6 g/dL (3.5-5.0) 05/02/19 14:12
[2019-05-04 13:40] VITALS: BP 142/76
== END 2019-05-04 13:22 | disposition home or self-care (01) ==
LOC: ER 12:10 → EH 14:23 → 4S 16:37
PROVIDERS: ADMIT Surgery; ATTEND Surgery
DX: T81.42XD Infection following a procedure, deep incisional surgical site, subsequent encounter (principal); B96.20 Unspecified Escherichia coli [E. coli] as the cause of diseases classified elsewhere; Y83.9 Surgical procedure, unspecified as the cause of abnormal reaction of the patient, or of later complication, without mention of misadventure at the time of the procedure; F90.9 Attention-deficit hyperactivity disorder, unspecified type; I10 Essential (primary) hypertension; F17.200 Nicotine dependence, unspecified, uncomplicated; Z79.899 Other long term (current) drug therapy
CPT/HCPCS: 99284; 36415 ×2; 87070; 87205; 85025 ×2; 87075; 87077; 80053; 87186; 00800; 11043; G0378 ×4; A6266; J2250; J1100; J3010; J0295; J3490; J1885 ×2; J2405; J7050; J7120; J2704; 800